=== PATIENT | female | born 1960 | race Caucasian/White ===

== ENCOUNTER 2017-12-12 15:22 | Emergency (ER) | payer SELFPAY ==
[2017-12-12 15:39] VITALS: TEMP 97.8
[2017-12-12 15:41] VITALS: BMI 13.0
--- NOTE | 2017-12-12 15:43 | ED PDOC ---
Arrival/HPI - General Time Seen by Provider: 12/12/17 15:24 Historian: Patient - History of Present Illness Narrative History of Present Illness (Text): 12/12/17 15:39 57yo female with pmhx of hypertension, hyperlipdemia, Afib s/p ?valvuloplasty bib EMS for complaint of anxiety, generalized weakness and numbness. she is Arbabic speaking, The daughter states patient suddenly started hyperventilating and complaining of generalized bodyache with numbness one hour after having an argument with her son. she denies chest pain, SOB, diaphoresis, focal weakness, nausea, vomiting, headache, dizziness, LE edema, calf pain, facial drooping, SI/HI, any other complaint. Past Medical History - Provider Review Nursing Documentation Reviewed: Yes Family/Social History - Physician Review Nursing Documentation Reviewed: Yes Family/Social History: Unknown Family HX Allergies/Home Meds Allergies/Adverse Reactions: Allergies No Known Allergies Allergy (Verified 12/12/17 15:42) Home Medications: Home Meds Medication Instructions Recorded Confirmed Diltiazem HCl [Diltiazem 24Hr Cd] 1 tab PO DAILY 12/12/17 12/12/17 Metoprolol Succinate XL [Toprol XL] 200 mg PO DAILY 12/12/17 12/12/17 Pantoprazole Sodium [Protonix] 40 mg PO DAILY 12/12/17 12/12/17 Torsemide [Demadex] 10 mg PO DAILY 12/12/17 12/12/17 Warfarin [Coumadin] 2.5 mg PO DAILY 12/12/17 12/12/17 Review of Systems - Physician Review All systems were reviewed & negative as marked: Yes - Review of Systems Constitutional: Fatigue Eyes: Normal ENT: Normal Respiratory: Normal Cardiovascular: Normal Gastrointestinal: Normal Genitourinary Female: Normal Musculoskeletal: Myalgias Skin: Normal Neurological: Other (Generalized paresthesia). absent: Dizziness, Focal Weakness Endocrine: Normal Hemo/Lymphatic: Normal Psychiatric: Anxiety Physical Exam Vital Signs Reviewed: Yes Vital Signs Temp Pulse Resp BP Pulse Ox 12/12/17 15:39 97.8 F 99 H 18 125/75 99 Temperature: Afebrile Blood Pressure: Normal Pulse: Regular Respiratory Rate: Normal Appearance: Positive for: Well-Appearing, Non-Toxic, Comfortable Pain Distress: None Mental Status: Positive for: Alert and Oriented X 3 - Systems Exam Head: Present: Atraumatic, Normocephalic Pupils: Present: PERRL Extroacular Muscles: Present: EOMI Conjunctiva: Present: Normal Mouth: Present: Moist Mucous Membranes Neck: Present: Normal Range of Motion Respiratory/Chest: Present: Clear to Auscultation, Good Air Exchange. No: Respiratory Distress, Accessory Muscle Use Cardiovascular: Present: Regular Rate and Rhythm, Normal S1, S2. No: Murmurs Abdomen: No: Tenderness, Distention, Peritoneal Signs Back: Present: Normal Inspection Upper Extremity: Present: Normal Inspection. No: Cyanosis, Edema Lower Extremity: Present: Normal Inspection. No: Edema Neurological: Present: GCS=15, CN II-XII Intact, Speech Normal Skin: Present: Warm, Dry, Normal Color. No: Rashes Psychiatric: Present: Alert, Oriented x 3, Normal Insight, Normal Concentration Medical Decision Making ED Course and Treatment: 12/12/17 18:58 PT in ED for stated . She was not in any distress in ED. She denied chest pain in ED. She was hemodynamically stable. she denied SI/HI in ED Lab was ordered and all wnl EKG A-fib @ 94bpm NSTEMI - Pt is already on Coumadin for A-fib CXR NAD All result was DW the pt and the family members. She reported improvement with Ativan in ED. Patient was advised to f/u with her PMD. TRT ED for worsening symptoms. Disposition/Present on Arrival - Present on Arrival Any Indicators Present on Arrival: No History of DVT/PE: No History of Uncontrolled Diabetes: No Urinary Catheter: No History of Decub. Ulcer: No History Surgical Site Infection Following: None - Disposition Have Diagnosis and Disposition been Completed?: Yes Diagnosis: Anxiety Disposition: HOME/ ROUTINE Disposition Time: 18:30 Patient Plan: Discharge Patient Problems: Current Active Problems Problem Status Onset Anxiety Acute Condition: STABLE Discharge Instructions (ExitCare): Anxiety, Adult (DC) Additional Instructions: Follow up with your Doctor Return to ED for any worsening symptoms Referrals: Angeles Paulino MD [Medical Doctor] - Follow up with primary
[2017-12-12 16:01] VITALS: O2SAT 98
--- NOTE | 2017-12-12 17:01 | RAD ---
HISTORY: anxiety COMPARISON: No prior. TECHNIQUE: Chest, one view. FINDINGS: Examination limited by habitus and hypoinflation. LUNGS: No focal consolidation. Please note that chest x-ray has limited sensitivity for the detection of pulmonary masses. PLEURA: No significant pleural effusion identified. No definite pneumothorax . CARDIOVASCULAR: Heart size appears top normal. Mild atherosclerotic calcification of the aorta present. Prosthetic cardiac valve. OSSEOUS STRUCTURES: No acute osseous abnormality identified. VISUALIZED UPPER ABDOMEN: Unremarkable. OTHER FINDINGS: None. IMPRESSION: Hypoinflation.
[2017-12-12 17:18] LABS: ALB/GLOB RATIO 1.3 (1.1-1.8); ALBUMIN 4.4 g/dL (3.0-4.8); ALT/SGPT 23 U/L (7-56); AST/SGOT 35 U/L (14-36); BLOOD UREA NITROGEN 17 mg/dL (7-21); CALCIUM 9.6 mg/dL (8.4-10.5); GFR NON-AFRICAN AMERICAN > 60
[2017-12-12 17:37] LABS: BARBITURATES, UR NEGATIVE (NEGATIVE); BENZODIAZEPINES, UR NEGATIVE (NEGATIVE); OPIATES, UR NEGATIVE (NEGATIVE); PHENCYCLIDINE, UR NEGATIVE (NEGATIVE)
[2017-12-12 17:39] LABS: PH,URINE 6.5 (4.7-8.0); URINE BILIRUBIN NEGATIVE (NEGATIVE); URINE BLOOD TRACE-LYSED (NEGATIVE); URINE GLUCOSE (UA) NEGATIVE (NEGATIVE); URINE LEUKOCYTE ESTERASE NEGATIVE Leu/uL (NEGATIVE); URINE PROTEIN NEGATIVE mg/dL (<30 mg/dL); URINE UROBILINOGEN 0.2 E.U./dL (<1 E.U./dL)
[2017-12-12 17:41] LABS: URINE APPEARANCE CLEAR (CLEAR)
[2017-12-12 17:41] LABS: TROPONIN I 0.01 ng/mL
[2017-12-12 17:42] LABS: BASO # 0.02 K/mm3 (0.0-2.0); BASO % 0.4 % (0.0-3.0); EOS # 0.1 (0.0-0.7); EOS % 0.9 % (1.5-5.0); GRAN # 3.1 (1.4-6.5); GRAN % 54.4 % (50.0-68.0); HEMOGLOBIN 15.8 g/dL (12.0-16.0); LYMPH # 2.2 (1.2-3.4); MEAN CELL VOLUME 83.2 fl (80.0-105.0); MEAN CORPUSCULAR HEMOGLOBIN 28.5 pg (25.0-35.0); MEAN CORPUSCULAR HGB CONC 34.2 g/dl (31.0-37.0); MEAN PLATELET VOLUME 10.5 fl (7.0-11.0); MONO # 0.4 (0.1-0.6); MONO % 6.3 % (1.0-6.0); RBC 5.55 10^6/uL (3.5-6.1); RED CELL DISTRIBUTION WIDTH 15.1 % (11.5-14.5); WHITE BLOOD COUNT 5.7 10^3/ul (4.5-11.0)
[2017-12-12 18:00] LABS: INR 2.36; PARTIAL THROMBOPLASTIN TIME 38.9 Seconds (25.1-36.5); PROTHROMBIN TIME 27.4 SECONDS (9.4-12.5)
[2017-12-12 19:03] VITALS: BP 107/74; PULSE 98; RESP 12
--- NOTE | 2017-12-12 22:15 | CARD ---
APPROVED REPORT Date of service: 12/12/2017 EKG Measurement Heart [id number] <Conclusion> Atrial fibrillation Possible Inferior infarct, age undetermined ST & T wave abnormality, consider anterior ischemia or digitalis effect Abnormal ECG
== END 2017-12-12 19:00 | disposition home or self-care (01) ==
LOC: ED 15:22
DX: F41.9 Anxiety disorder, unspecified (principal); I10 Essential (primary) hypertension; E78.5 Hyperlipidemia, unspecified; I48.91 Unspecified atrial fibrillation
CPT/HCPCS: 71045; 80053; 81001; 82550; 83615; 84443; 84484; 85025; 85610; 85730; 93005; 96374; 99285; G0480; J2060